=== PATIENT | male | born 1995 | race Caucasian/White ===

== ENCOUNTER → 2025-01-14 13:11 | Outpatient (CLI) | payer OTHER, SELFPAY ==
--- NOTE | 2025-01-14 13:13 | DI.MRI.S_ITS ---
PROCEDURE: MR WRIST RT WO CON INDICATIONS: Right wrist pain TECHNIQUE: Noncontrast coronal proton density fast spin echo and T2 fast spin echo with fat saturation; coronal 3-D gradient echo, axial T1 spin echo and T2 fast spin echo with fat saturation, sagittal T1 spin echo through the wrist. COMPARISON: None. FINDINGS: Image quality: Excellent. Bones and cartilage: The carpal bones are normally aligned. No bone marrow contusions or fractures. No evidence for avascular necrosis. Nonspecific intraosseous cyst formation involving central portion of trapezoid. No suspicious intraosseous lesions. Overlying cartilage surfaces appear normal. Carpal ligaments: The scapholunate and lunotriquetral ligaments appear intact. In the absence of intra-articular contrast, the extrinsic carpal ligaments are not well identified. On sagittal images, the pisohamate ligament appears intact. Triangular fibrocartilage complex: T2 hyperintense signal involving triangular fibrocartilage near its ulnar insertion concerning for subtle TFC perforation.. The extensor carpi ulnaris tendon is thickened with intrasubstance T2 hyperintense signal at the level of ulnar styloid and distal ulna. Tendons and soft tissues: The carpal tunnel structures appear normal, including the median nerve. The ulnar nerve appears normal within Guyon's canal. All six extensor tendon compartments demonstrate normal morphology, without pathologic tendon sheath fluid. No soft tissue ganglion cysts. IMPRESSION: 1. No marrow edema. No wrist fracture or dislocation. No evidence of avascular necrosis. 2. Suggestion of subtle TFC tear near its ulnar insertion. 3. Tendinosis and low-grade intrasubstance partial-thickness tear involving extensor carpi ulnaris tendon at the level of distal ulna and ulnar styloid. Rest of the extensor and flexor tendons are intact. 4. Scapholunate and lunotriquetral ligaments are intact. Dictated by: Mundo Estrada M.D. on 01/14/2025 at 15:11 Approved by: Mundo Estrada M.D. on 01/14/2025 at 15:14
== END ==
DX: S66.811A Strain of other specified muscles, fascia and tendons at wrist and hand level, right hand, initial encounter (principal); M67.439 Ganglion, unspecified wrist
CPT/HCPCS: 73221